=== PATIENT | male | born 1995 | race Caucasian/White ===

== ENCOUNTER 2018-07-05 05:10 | Inpatient (IN) | payer BC ==
[~2018-07-05] VITALS: Ht 170.2 cm; Wt 100.0 kg
[2018-07-05] MEDS ORDERED: SOD CHLORIDE 0.9% 1,000 ML IV STA ×2 (05:49→06:02)
[2018-07-05] MEDS ORDERED: ROCURONIUM 50 MG INJ IV ONE (06:00)
--- NOTE | 2018-07-05 06:09 | EN ---
Date/Time of Note Date/Time of Note DATE: 07/05/18 TIME: 06:07 ER Progress Note The patient was dropped off in front of the emergency department, was brought to bed 5 immediately by the triage nurse. He is highly intoxicated and unable to provide any history, O2 saturation is 80-85% on 100% NRM, accu check was 250. He is unable to protect his airway. He need to be intubated immediately. He was already sedated, paralyzed with rocuronium 80 mg IV and intubated immediately without any difficulty Endotracheal Intubation by me: Pre assessment performed. See preceding note for details. Pre-oxygenation performed with 100% oxygen RSI: Performed w/o complication or hypoxic events. Medications as ord ered. Blade: ET Tube: 7.5 cm Depth: 23 cm at the lip Intubation confirmed by colorimetric CO2, equal breath sounds, quiet over the stomach. I have ordered for NG tube, Alfaro, chest x-ray The patient care will be taken over by the incoming physician AJ Moran MD Jul 05, 2018 06:09
[2018-07-05] MEDS ORDERED: VANCOMYCIN 1 GM (PMX) 250 ML IVPB STA (06:16)
[2018-07-05] MEDS ORDERED: PIPER-TAZO 3.375 GM IV (PMX) 100 ML IVPB STA (06:16)
[2018-07-05] MEDS ORDERED: SODIUM CHLORIDE 0.9% 1L BAG IV* STA (06:16)
--- NOTE | 2018-07-05 06:25 | ERD ---
ER Documentation Chief Complaint Chief Complaint BIB FAMILY AND DROPPED OFF AT DOOR, ALOC, ETOH, RESPIRATIONS AGONAL HPI This is a 23-year-old male that was brought into the emergency department by friends and family after they noticed that the patient had changes in his mental status. Indicated the patient had been drinking a significant amount of alcohol but friend stated he did not use any illicit drugs. The friends appeared very anxious nervous and poor historians and indicated that they found the patient in the passenger seat of his vehicle and immediately drove him to the hospital. No further history is available. The patient had agonal respirations. It is unknown the patient's past medical history. ROS All systems reviewed and are negative except as per history of present illness. Allergies Allergies: Coded Allergies: Unknown: Unable to obtain (Unverified , 07/05/18) PMhx/Soc Medical and Surgical Hx: Unable to obtain Hx Alcohol Use: Yes Smoking Status: Unknown if ever smoked Physical Exam Vitals Vital Signs Date Temp Pulse Resp B/P (MAP) Pulse Ox O2 O2 Flow FiO2 Time Delivery Rate 07/05/18 98.4 103 20 125/98 100 Mechanical 07:30 (107) Ventilator 07/05/18 98.1 127 20 145/102 100 Mechanical 06:30 (116) Ventilator 07/05/18 98.1 124 20 165/94 100 Mechanical 06:11 (117) Ventilator 07/05/18 112 20 100 100 05:50 07/05/18 98.1 110 8 126/81 35 05:20 (96) Physical Exam Constitutional:Well-developed. Well-nourished. HEENT:Normocephalic. No nasal septal hematoma. No hemotympanum..Pupils were 3mm equal round reactive to light. Moist mucous membranes.No tonsillar exudates. Neck: No nuchal rigidity. No lymphadenopathy. No posterior cervical spine tenderness or step-offs. Respiratory: Agonal respirations. No wheezing. No rhonchi. Breath sounds equal and symmetrical bilaterally. Cardiovascular: Regular rate regular rhythm.No murmurs. No rubs were appreciated.S1, S2 normal. Distal pulses are palpable 2+ bilaterally. GI: Abdomen was soft. Nontender. Non Distended. No pulsatile abdominal masses or bruits. No rebound. No guarding. Bowel sounds were present and normal. Muscle skeletal: No active movements of the upper and lower extremities but passively patient has full range of motion of the upper and lower extremities.No assymetrical calf tenderness or swelling. Skin: No petechia, no purpura. No lesions on the palms or the soles of the feet. No maculopapular rash. NEURO: Patient was not opening eyes in response to pain. Patient withdrew to pain. Nonverbal. Gait not observed. Result Diagram: 07/05/1818 07/05/18 0518 Results 24 hrs Laboratory Tests Test 07/05/18 05:18 07/05/18 05:39 07/05/18 06:15 White Blood Count 27.1 10^3/ul Red Blood Count 5.36 10^6/ul Hemoglobin 16.7 g/dl Hematocrit 51.0 % Mean Corpuscular Volume 95.1 fl Mean Corpuscular 31.2 pg Hemoglobin Mean Corpuscular 32.7 g/dl Hemoglobin Concent Red Cell Distribution 13.0 % Width Platelet Count 406 10^3/UL Mean Platelet Volume 9.3 fl Immature Granulocytes % 2.500 % Neutrophils % % Segmented Neutrophils 84 % % (Manual) Band Neutrophils % 3 % (Manual) Lymphocytes % % Lymphocytes % (Manual) 10 % Monocytes % % Monocytes % (Manual) 2 % Eosinophils % % Basophils % % Myelocytes % (Manual) 1 % Nucleated Red Blood Cells 0.0 /100WBC % Immature Granulocytes # 0.690 10^3/ul Neutrophils # 10^3/ul Neutrophils # (Manual) 23.0 10^3/ul Band Neutrophils # 0.8 10^3/ul Lymphocytes (Manual) 2.7 10^3/ul Lymphocytes # 10^3/ul Monocytes # 10^3/ul Monocytes # (Manual) 0.5 10^3/ul Eosinophils # 10^3/ul Basophils # 10^3/ul Myelocytes # 0.2 10^3/ul Nucleated Red Blood Cells 10^3/ul # Platelet Estimate NORMAL Polychromasia 1+ Poikilocytosis 1+ Anisocytosis 1+ Microcytosis 1+ Prothrombin Time 12.8 Sec Prothrombin Time Ratio 1.0 INR International 0.95 Normalized Ratio Activated 24.7 Sec Partial Thromboplast Time Urine Color YELLOW Urine Clarity SLIGHTLY CLOUDY Urine pH 6.0 Urine Specific Crary 1.014 Urine Ketones NEGATIVE mg/dL Urine Nitrite NEGATIVE mg/dL Urine Bilirubin NEGATIVE mg/dL Urine Urobilinogen 2+ mg/dL Urine Leukocyte Esterase 2+ Cele/ul Urine Microscopic RBC 9 /HPF Urine Microscopic WBC 93 /HPF Urine Bacteria FEW /HPF Urine Hyaline Casts FEW /HPF Urine Mucus MANY /HPF Urine Hemoglobin 1+ mg/dL Urine Glucose 2+ mg/dL Urine Total Protein 1+ mg/dl Sodium Level 142 mmol/L Potassium Level 4.2 mmol/L Chloride Level 101 mmol/L Carbon Dioxide Level 26 mmol/L Anion Gap 15 Blood Urea Nitrogen 11 mg/dl Creatinine 1.64 mg/dl Est Glomerular Filtrat 52 mL/min Rate mL/min Glucose Level 298 mg/dl Calcium Level 9.3 mg/dl Total Bilirubin 0.4 mg/dl Direct Bilirubin 0.00 mg/dl Indirect Bilirubin 0.4 mg/dl Aspartate Amino 174 IU/L Transf (AST/SGOT) Alanine 132 IU/L Aminotransferase (ALT/SGPT ) Alkaline Phosphatase 111 IU/L Ammonia 48 umol/l Creatine Kinase 146 IU/L Creatine Kinase Index 0.4 Creatinine Kinase MB 0.64 ng/ml (Mass) Troponin I 0.073 ng/ml Total Protein 8.0 g/dl Albumin 4.6 g/dl Globulin 3.40 g/dl Albumin/Globulin Ratio 1.35 Free Thyroxine Index 2.89 ug/ml Thyroxine (T4) 8.1 ug/dl Triiodothyronine (T3) 35.7 % Uptake Salicylates Level < 1.0 mg/dl Urine Opiates Screen POSITIVE Acetaminophen Level < 10.0 ug/ml Urine Barbiturates NEGATIVE Urine Amphetamines Screen POSITIVE Urine Benzodiazepines NEGATIVE Screen Urine Cocaine Screen NEGATIVE Urine Cannabinoids POSITIVE Ethyl Alcohol Level < 10.0 mg/dl Bedside Urine pH (LAB) 6.5 Bedside Urine Protein 1+ (LAB) Bedside Urine Glucose (UA) 0.1% Bedside Urine Ketones Negative (LAB) Bedside Urine Blood Trace-intact Bedside Urine Nitrite Negative (LAB) Bedside Urine 1+ Leukocyte Esterase (L Blood Gas Specimen Source Blood arterial Arterial Blood Date Drawn 07/05/2018 6:15:12 AM Arterial Blood pH 7.267 (Temp corrected) Arterial Blood pCO2 55.5 mmhg (Temp correct) Arterial Blood pO2 80.1 mmHG (Temp corrected) Arterial Blood HCO3 24.7 mmol/L Arterial Blood Base Excess -3.3 mmol/L Arterial Blood 95.1 mmHG Oxygen Saturation Santhosh Test ACCEPTAB Arterial Blood Gas Right Radial Puncture Site Arterial 0.2 % Blood Carboxyhemoglobin Arterial Blood 0.4 % Methemoglobin Blood Gas A-a O2 577.4 mmHg Differential Oxyhemoglobin Percent 94.5 % Blood Gas Temperature 37.0 C Blood Gas Respiration Rate 20.0 Blood Gas Actual 20 Respiration Rate Blood Gas Modality VENT - AC FiO2 100.0 % Blood Gas Tidal Volume 500.0 mL Blood Gas Low PEEP Setting 5.0 cmH2O Blood Gas Critical Value PHAM. Xenia VILLELA Read Back Blood Gas Notified Whom Blood Gas Notified Time 07/05/2018 6:25:51 AM Current Medications Medications Dose Sig/Jp Start Time Status Last (Trade) Ordered Route PRN Stop Time Admin Dose Reason Admin Sodium 1,000 ml @ Q1H STAT 07/05/18 DC 07/05/18 Chloride 1,000 mls/hr IV 05:49 06:10 07/05/18 06:48 Rocuronium 80 mg ONCE ONCE 07/05/18 DC [place] IV 06:00 (Zemuron) 07/05/18 06:01 Sodium 1,000 ml @ Q1H STAT 07/05/18 DC 07/05/18 Chloride 1,000 mls/hr IV 06:02 07:37 07/05/18 07:01 Sodium 2,000 ml BOLUS OVER 2 07/05/18 DC 07/05/18 Chloride HOURS STAT 06:16 07:50 (NS) IV* 07/05/18 06:33 Vancomycin 250 ml @ ONCE STAT 07/05/18 DC HCl 125 mls/hr IVPB 06:16 07/05/18 08:15 Piperacillin 100 ml @ ONCE STAT 07/05/18 DC 07/05/18 Sod/ 200 mls/hr IVPB 06:16 07:50 Tazobactam 07/05/18 06:45 Sod Propofol 100 ml @ 3 ONCE STAT 07/05/18 07/05/18 mls/hr IV 06:51 07:38 07/06/18 16:10 1,000 ml @ Q2H ONCE 07/05/18 Multivitamins 500 mls/hr IV 08:30 10 07/05/18 10:29 ml/Thiamine HCl 100 mg/Folic Acid 1 mg/Magnesium Sulfate 2 gm/ Sodium Chloride Lorazepam 1 mg ONCE ONCE 07/05/18 (Ativan) IV 08:30 07/05/18 08:31 Procedures/MDM The patient presented to the emergency department with an acute and persistent change in their mental status. The differential diagnosis is diverse however reversible causes such as hypoglycemia, opiate overdose, thiamine deficiency were immediately considered. The patient was placed on a library monitor, continuous pulse oximetry and IV access was established. The patients airway was was not secured. The patient had agonal respirations. The patient had arrived prior to the start of my shift and the previous ER physician Dr. Harris intubated the patient to secure the patient's airway. He used rocuronium and placed on propofol for sedation. the patient did have a gag reflex. Circulation assessed with good cap refill and did not require fluids or pressure support. Finger stick for rapid glucose determined to be 298. 12 Lead EKG tracing ordered and reviewed by myself showed: Sinus tachycardia 126 bpm and no arrhythmia. GA interval normal. QRS duration normal. No ST segment elevation No ST segment depression. No changes consistent with acute ischemia. Once the ancillary laboratory came back the patient had severe leukocytosis with white blood cell count of 27,000. Therefore at this time the patient did meet Sirs criteria and lactic acid is pending. The patient did receive a 30 cc/kg bolus of normal saline was also given Comycin and Zosyn for suspected aspiration pneumonia. However the patient did have a urinary tract infection and therefore the antibiotics of choice will treat the urinary tract infection. The patient's urine drug screen was positive for opiates amphetamines and marijuana. Therefore this was thought to be toxic encephalopathy and serum ethanol was nondetected. The patient's ammonia level was elevated as well as transaminitis. The patient received a banana bag and was also given Ativan as a could not rule out severe alcohol withdrawal. A 1 view chest radiograph on reviewed by myself and the radiologist indicate the following: Endotracheal tube in appropriate position. Bibasilar atelectatic changes and small bilateral pleural effusions. Elevation of the right diaphragm. I obtained a CT scan of the patient's head which was reviewed by the radiologist myself and indicated the following: Left greater than right anterior inferior frontal lobe hypodensity, the distribution and appearance of which would favor presence of encephalomalacia from prior insult/injury. Allowing for this there is no acute or recent territorial infarct, which may initially be inapparent on CT. Short-term followup CT, or MRI, could be considered if there is persisting symptomatology or concern including for the possibility of acute infarct or anoxic injury. No intracranial hemorrhage, mass effect or hydrocephalus is seen. Borderline generalized atrophy, for age. The patient will be admitted to the intensive care unit in serious condition under the care of Dr. Mayen for an anticipated stay of greater than 2 midnights. Critical Care: Time: 75 minutes Treatments/Evaluations: Close monitoring and treatment of unstable vital signs, cardiorespiratory, and neurologic status, while maintaining tight balance of fluid, respiratory, and cardiac interventions. Time does not include performing any of the above billable procedures. I received a call at 8:22 AM that the patient's lactic acid was elevated at 4.4. The patient had already received 30 cc/kg bolus of normal saline and IV antibiotics for suspected sepsis. Patient's infectious symptoms have not stabilized and the patient is at risk of rapid decompensation. The patient will be admitted for careful hydration, antibiotic therapy, and infectious source control. Severe Sepsis Assessment: Infectious Source: pyleonephritis End organ damage indicated by: [Lactate > 2.0 mmol/L Hypotension( SBP < 90 or >40 mmHG drop or MAP < 65) Acute Resp Failure (sat < 92% w/o oxygen) Personnel Adviser > 2.0 INR > 1.5 Plt < 100 Bili > 2] Severe Sepsis Managment: Blood Cultures X 2 before broad spectrum antibiotics initiated within 3 hours of recognition. 30 ml/kg NS bolus Completed Initial Lactate: 4.4 Repeat Lactate pending Septic Shock Assessment (1 hour post 30 ml/kg fluid bolus): Hypotension (SBP < 90 or 40 mmHg drop, MAP < 65): No Lactic acid > 4.0 Yes Perfusion Reassessment for Septic Shock: Temp 98.4, Pulse 103, RR 20, BP 125/98 Heart Exam: Tachycardic Lung Exam: No Crackles Capillary Refill: Normal Peripheral Pulses: Radially present Skin: Normal I considered further perfusion assessment with CVP measurement, SCVO2, bedside ultrasound volume assessment, passive leg raise, trial of further fluid bolus. And preceded with IV fluids Departure Diagnosis: Primary Impression: Altered level of consciousness Additional Impressions: Toxic encephalopathy Hyperglycemia without ketosis Urinary tract infection Urinary tract infection type: acute cystitis Hematuria presence: without hematuria Qualified Codes: N30.00 - Acute cystitis without hematuria Severe sepsis Condition: Serious Patient Instructions: When Your Child Has a Urinary Tract Infection (UTI) TAMMI URBINA MD Jul 05, 2018 06:25
[2018-07-05] MEDS ORDERED: PROPOFOL 100 ML IV STA (06:51)
[2018-07-05] MEDS ORDERED: ROCURONIUM 50 MG INJ ONE (07:00)
[2018-07-05] MEDS ORDERED: MULTIVITAMINS 10 ML, THIAMINE 100 MG, FOLIC ACID 1 MG, MAGNESIUM SULFATE 2 GM in SOD CH... IV ONE (08:30)
[2018-07-05] MEDS ORDERED: LORAZEPAM 2 MG INJ IV ONE (08:30)
[2018-07-05] MEDS ORDERED: PROPOFOL 100 ML IV ONE (11:30)
--- NOTE | 2018-07-05 14:47 | CONS ---
DATE OF ADMISSION: 07/05/2018 DATE OF CONSULTATION: REASON FOR CONSULTATION: Ventilator management. Thank you, Dr. Urbina, for this consultation. HISTORY OF PRESENT ILLNESS: This is a 23-year-old gentleman who presented to the hospital with alter ed mental status with a history of significant alcohol and apparent substance abuse. On admission, t he patient was unable to protect airway, was emergently intubated. This morning I examined him and w e decreased sedation, placed him on a weaning trial. The patient self-extubated. Following self-ext ubation, he remains hemodynamically stable. Urine tox was positive for amphetamines, cannabis and op iates. PAST MEDICAL HISTORY: Substance abuse. MEDICATIONS: Per chart. ALLERGIES: UNKNOWN. SYSTEMS REVIEW: A 12-point review of systems was negative other than that mentioned above. PHYSICAL EXAMINATION: GENERAL: Well-nourished, well-developed gentleman, appears comfortable at rest, no acute distress. VITAL SIGNS: Currently afebrile. Temperature 98, pulse is 120, blood pressure 125/76, O2 saturation 99% on 4 L nasal cannula. NECK: Supple. No JVD or lymphadenopathy. CARDIAC: S1, S2, no added sounds or murmurs. CHEST: Diminished air entry at both bases. ABDOMEN: Soft, nontender. No guarding or rebound. EXTREMITIES: No cyanosis, clubbing or edema. NEUROLOGIC: Grossly intact. No focal deficits. LABORATORIES: White count 27.1, hemoglobin 16.7, platelets within normal limits. Chemistry: BUN 11 , creatinine 1.64. Creatinine kinase within normal limits. Lactic acid initially 4.4, then 4.3. IMAGING: Chest x-ray shows small bilateral pleural effusions with atelectasis. CT brain shows evide nce of prior injury with encephalomalacia. IMPRESSION AND PLAN: Polysubstance abuse with altered mental status, possible aspiration pneumonia, s ubsequent intubation, mechanical ventilation. Now, the patient is self-extubated. The patient will require: 1. Continue antibiotics. 2. Bronchodilators. 3. Supplemental O2 as needed. 4. Advice on substance abuse. 5. DVT and GI prophylaxis. Dictated By: WALESKA MATHEW MD SV/DAMIAN Conf#: [id number] DID#: [id number] CC: TAMMI URBINA MD;*EndCC*
[2018-07-05] MEDS ORDERED: ALBUTEROL 0.083% (NEB) 2.5 MG/3 ML AMP HHN PRN (15:30)
[2018-07-05] MEDS: PIPER-TAZO 3.375 GM IV (PMX) 100 ML IVPB SCH ×2 (15:31→22:05)
[2018-07-05 16:35] VITALS: BP 123/62; PULSE 109; RESP 19
[2018-07-05] MEDS: SOD CHLORIDE 0.9% 1,000 ML IV SCH (18:11)
--- NOTE | 2018-07-05 18:12 | HP ---
DATE OF ADMISSION: 07/05/2018 TIME OF EVALUATION: About 9:00 a.m. PRESENTING COMPLAINT: Altered mental status. HISTORY OF PRESENTING COMPLAINT: This is a 23-year-old male who was brought in obtunded due to change in mental status. Apparently per report, the patient had been drinking and urine toxicology screen was positive for multiple drugs. The patient was agonal when he came in and altered and had required endotracheal intubation in the emergency room to secure his airway. Urine drug screen was positive for opiates, amphetamines and marijuana and at this time, the patient is intubated and sedated and is being admitted for further management. PAST MEDICAL HISTORY: None. PAST SURGICAL HISTORY: None. ALLERGIES: NO KNOWN DRUG ALLERGIES. SOCIAL HISTORY: Cannot be obtained. REVIEW OF SYSTEMS: Cannot be obtained. PHYSICAL EXAMINATION: VITAL SIGNS: Temperature 98.4, pulse 104, respirations 20, blood pressure 118/86, saturations 100%. The patient is on mechanical ventilator, FiO2 of 90%. GENERAL: The patient is comfortably sedated. HEENT: Pupils are sluggishly reactive, but equal. No evidence of trauma. Orotracheally intubated. CHEST: With some coarseness to his breath sounds, but fairly good air entry. CARDIOVASCULAR: Tachycardia without murmurs. ABDOMEN: Soft, nontender. EXTREMITIES: Lower extremities are negative for edema. LABORATORY VALUES: The following were notable: Leukocytosis of 27,000 with bandemia of 30%, neutrophils predominance of 84%. Hyperglycemia with glucose of 289. Transaminitis with AST 174, ALT 133. Ammonia elevated at 48. Creatinine 1.64. Urine toxicology screen is positive for opiates, amphetamines as well as cannabinoids. Urinalysis with 2+ bacteria and 2+ leukocyte esterase. IMAGING: CT of the brain showed encephalomalacia from prior injury, no acute infarct noted, no bleeding. Chest x-ray showed endotracheal tube in appropriate position, bibasilar atelectasis and small pleural effusions. ASSESSMENT: A 23-year-old male who was brought in altered with the followin. Acute toxic encephalopathy secondary to #2. 2. Likely accidental overdose. 3. Acute respiratory failure, ventilator dependent secondary to above. 4. Sepsis with highly probable aspiration pneumonia in the lungs as well as urinary tract infection. 5. Acute renal failure, rule out chronic kidney disease. 6. Multi-substance abuse including amphetamines and marijuana. 7. Transaminitis, likely due to shock liver. 8. Hyperammonemia. Rule out hepatic encephalopathy. PLAN: Admit the patient to the intensive care unit. Continue vent support and wean. Start the patient on empiric antibiotics for UTI and possible aspiration pneumonia. Trend lactic acid levels and provide him with supportive care. Further intervention will depend on his clinical course. We will send blood, urine and sputum cultures. Pulmonary consultation will also be obtained for further management. Dictated By: YESICA ALVAREZ MD BA/NTS Conf#: [id number] DID#: [id number] CC: WALESKA MATHEW MD;*EndCC* MTDD
[2018-07-05 18:21] VITALS: PULSE 129
[2018-07-05] MEDS: ALBUTEROL 0.083% (NEB) 2.5 MG/3 ML AMP HHN SCH (19:21)
[2018-07-05 20:00] VITALS: BP 96/51; PULSE 114; RESP 20
[2018-07-05 20:16] VITALS: PULSE 128
[2018-07-05] MEDS ORDERED: FAMOTIDINE 20 MG INJ IV SCH (21:00)
[2018-07-06] VITALS (13 sets, daily range): BP systolic 99–131; BP diastolic 54–78; PULSE 94–112; RESP 18–20; Ht 170.2 cm; Wt 100.0 kg
[2018-07-06] MEDS: ALBUTEROL 0.083% (NEB) 2.5 MG/3 ML AMP HHN SCH ×4 (01:22→19:50)
[2018-07-06] MEDS: SOD CHLORIDE 0.9% 1,000 ML IV SCH ×2 (04:42→13:35)
[2018-07-06] MEDS: PIPER-TAZO 3.375 GM IV (PMX) 100 ML IVPB SCH ×3 (06:09→22:52)
[2018-07-06] MEDS: FAMOTIDINE 20 MG TAB PO SCH ×2 (08:20→21:03)
--- NOTE | 2018-07-06 09:39 | CONS ---
Assessment/Plan Assessment/Plan Assessment/Plan (Daily) Assessment and recommendations; 1. Patient admitted for acute drug overdose requiring brief intubation with significant improvement in overall clinical status. 2. Possibly some element of aspiration pneumonia, currently on appropriate antimicrobial regimen. Leukocytosis is improving. 3. Acute renal injury with normalization of renal function. Continue current supportive care. Further recommendations once chest x-ray is reviewed from this morning. I did have a detailed discussion with the patient's aunt at bedside and also discussed with the patient's mother over the phone. Consultation Date/Type/Reason Admit Date/Time Jul 05, 2018 at 14:10 Date of Consultation: Jul 06, 2018 Type of Consult Pulmonary Patient is a 23-year-old male who was brought into the hospital yesterday with altered mental status, patient was intubated but was extubated later on and then transferred to medical floor. By the time I saw him, patient is completely awake and alert but appearing very mildly sluggish to respond. He complains of mild sore throat and chest congestion and mild cough. Denies any chest pain, fever chills any abdominal pain nausea vomiting. Past medical history 1. Unremarkable. Possibly drug abuse. Medications; reviewed. Allergies; none. Social history; positive for drug abuse. Family history; noncontributory. Patient does have a supportive family. Occupational history; noncontributory. Review of systems; denies any headache, seizures, complains of sore throat. Complains of mild cough and chest congestion. Denies any chest pain, wheezing. Any nausea vomiting. Any abdominal pain, diarrhea, constipation. Any orthopnea. He denies any shortness of breath. General exam; young male, awake alert, currently no distress. Date/Time of Note DATE: 07/06/18 TIME: 09:35 Past Medical History Home Meds Unable to Obtain Active Prescriptions or Reported Meds Medications Current Medications Propofol 100 ml @ 3 mls/hr ONCE STAT IV Last administered on 07/05/18at 07:38; Admin Dose 3 MLS/HR; Start 07/05/18 at 06:51; Stop 07/06/18 at 16:10 Piperacillin Sod/ Tazobactam Sod 100 ml @ 200 mls/hr Q8 IVPB Last administered on 07/06/18at 06:09; Admin Dose 200 MLS/HR; Start 07/05/18 at 14:30 Albuterol (Proventil 0.083% (Neb)) 2.5 mg Q4H RESP THERAPY PRN HHN SHORTNESS OF BREATH Last administered on 07/05/18at 15:48; Admin Dose 2.5 MG; Start 07/05/18 at 15:30 Albuterol (Proventil 0.083% (Neb)) 2.5 mg Q6H RESP THERAPY HHN Last administered on 07/06/18 01:22; Admin Dose 2.5 MG; Start 07/05/18 at 20:00 Sodium Chloride 1,000 ml @ 100 mls/hr Q10H IV Last administered on 07/06/18 04:42; Admin Dose 100 MLS/HR; Start 07/05/18 at 18:00 Famotidine (Pepcid) 20 mg BID PO Last administered on 07/06/18 08:20; Admin Dose 20 MG; Start 07/06/18 at 09:00 Allergies: Coded Allergies: No Known Allergy (Unverified , 07/05/18) Social History Smoking Status: Never smoker Exam/Review of Systems Exam Vitals Vital Signs Date Temp Pulse Resp B/P (MAP) Pulse Ox O2 O2 Flow FiO2 Time Delivery Rate 07/06/18 97.3 101 113/64 92 08:05 (80) 07/06/18 Nasal 04:00 Cannula 07/06/18 4.0 02:00 07/06/18 21 01:23 Intake and Output 07/05/18 07/05/18 07/06/18 1515:00 23:00 07:00 IntakeIntake Total 3200 ml 200 ml 400 ml OutputOutput Total 1700 ml 2225 ml BalanceBalance 1500 ml 200 ml -1825 ml Exam HEENT exam; supple neck, no JVD. No lymphadenopathy. Midline trachea. No thyromegaly. Patient has good dentition. No neck masses. Pupils are small bilaterally. Chest exam; diminished but clear breath sounds. S1-S2 audible, no murmurs. Regular rhythm. Abdomen exam; soft, nontender. No organomegaly. Bowel sounds audible. Extremity exam; no peripheral edema. PIPELINE DISPATCHER exam; no focal deficit. Results Result Diagram: 07/06/18 0610 07/06/18 0610 Results 24hrs Laboratory Tests Test 07/05/18 09:52 07/05/18 15:33 07/06/18 06:10 Lactic Acid Level 4.3 *H 2.2 *H 1.7 White Blood Count 16.1 #H Red Blood Count 4.74 Hemoglobin 14.7 Hematocrit 44.0 Mean Corpuscular Volume 92.8 Mean Corpuscular Hemoglobin 31.0 Mean Corpuscular Hemoglobin Concent 33.4 Red Cell Distribution Width 13.2 Platelet Count 312 # Mean Platelet Volume 9.6 Immature Granulocytes % 0.400 Neutrophils % 84.9 H Lymphocytes % 8.3 L Monocytes % 5.5 Eosinophils % 0.6 Basophils % 0.3 Nucleated Red Blood Cells % 0.0 Immature Granulocytes # 0.070 H Neutrophils # 13.7 H Lymphocytes # 1.3 Monocytes # 0.9 Eosinophils # 0.1 Basophils # 0.1 Nucleated Red Blood Cells # 0.0 Sodium Level 141 Potassium Level 4.0 Chloride Level 107 Carbon Dioxide Level 26 Anion Gap 8 Blood Urea Nitrogen 8 Creatinine 0.96 Est Glomerular Filtrat Rate mL/min > 60 Glucose Level 95 # Hemoglobin A1c 5.0 Calcium Level 8.5 Phosphorus Level 3.2 Magnesium Level 2.1 Total Bilirubin 0.6 Direct Bilirubin 0.00 Indirect Bilirubin 0.6 Aspartate Amino Transf (AST/SGOT) 34 # Alanine Aminotransferase (ALT/SGPT) 68 Alkaline Phosphatase 78 Total Protein 5.8 #L Albumin 3.2 #L Hepatitis B Surface Antigen NEGATIVE Hepatitis B Surface Antibody NEGATIVE Hepatitis B Core Total Antibody NEGATIVE Hepatitis C Antibody NEGATIVE Medications Medication Current Medications Propofol 100 ml @ 3 mls/hr ONCE STAT IV Last administered on 07/05/18at 07:38; Admin Dose 3 MLS/HR; Start 07/05/18 at 06:51; Stop 07/06/18 at 16:10 Piperacillin Sod/ Tazobactam Sod 100 ml @ 200 mls/hr Q8 IVPB Last administered on 07/06/18at 06:09; Admin Dose 200 MLS/HR; Start 07/05/18 at 14:30 Albuterol (Proventil 0.083% (Neb)) 2.5 mg Q4H RESP THERAPY PRN HHN SHORTNESS OF BREATH Last administered on 07/05/18at 15:48; Admin Dose 2.5 MG; Start 07/05/18 at 15:30 Albuterol (Proventil 0.083% (Neb)) 2.5 mg Q6H RESP THERAPY HHN Last administered on 07/06/18at 01:22; Admin Dose 2.5 MG; Start 07/05/18 at 20:00 Sodium Chloride 1,000 ml @ 100 mls/hr Q10H IV Last administered on 07/06/18at 04:42; Admin Dose 100 MLS/HR; Start 07/05/18 at 18:00 Famotidine (Pepcid) 20 mg BID PO Last administered on 07/06/18at 08:20; Admin Dose 20 MG; Start 07/06/18 at 09:00 SILVIA MILLER Jul 06, 2018 09:39
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
[2018-07-06] MEDS: THIAMINE 100 MG TAB PO SCH (15:25)
[2018-07-06] MEDS: KETOROLAC 30 MG INJ IV PRN (22:53)
[2018-07-07] MEDS: SOD CHLORIDE 0.9% 1,000 ML IV SCH (01:12)
[2018-07-07 01:53] VITALS: BP 127/74; PULSE 98; RESP 20
[2018-07-07] MEDS: ALBUTEROL 0.083% (NEB) 2.5 MG/3 ML AMP HHN SCH ×3 (02:09→14:51)
[2018-07-07] MEDS: PIPER-TAZO 3.375 GM IV (PMX) 100 ML IVPB SCH ×2 (06:14→13:13)
[2018-07-07 07:55] VITALS: BP 111/71; PULSE 88; RESP 18
[2018-07-07] MEDS: FAMOTIDINE 20 MG TAB PO SCH (08:39)
[2018-07-07] MEDS: THIAMINE 100 MG TAB PO SCH (08:40)
[2018-07-07] MEDS: GUAIFENESIN/DM 5ML CUP PO PRN ×2 (08:49→16:50)
[2018-07-07] MEDS: KETOROLAC 30 MG INJ IV PRN ×2 (08:49→16:51)
[2018-07-07] MEDS ORDERED: ENOXAPARIN 40 MG/0.4 ML SYG SC SCH (09:00)
--- NOTE | 2018-07-07 11:06 | PDOCDIS ---
Discharge Instructions CONDITION [id number] Patient Condition: [id number] Stable HOME CARE INSTRUCTIONS: [id number] Diet Instructions: [id number] Regular ACTIVITY: [id number] Activity Restrictions: [id number] Slowly Increase Activity Do not Drive FOLLOW UP/APPOINTMENTS Follow-up Plan appt primary 1BRANDI Lao MD Jul 07, 2018 11:06
[2018-07-07] MEDS ORDERED: ALBU90AE INHALATION (11:09)
[2018-07-07] MEDS ORDERED: AZIT500T5 PO (11:09)
[2018-07-07] MEDS ORDERED: IBUP-1542 PO (11:09)
[2018-07-07] MEDS ORDERED: GUAI120S26 PO (11:09)
[2018-07-07] MEDS ORDERED: FAMO20TA18 PO (11:09)
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
[2018-07-07 13:58] VITALS: BP 107/64; PULSE 85; RESP 16
== END 2018-07-07 17:54 | disposition home or self-care (01) | DRG 871 ==
LOC: EDBD 05:10 → E/R 05:10 → TEL 14:10 → MERGE 14:10 → EDBEDREQSVC 14:11 → TEL 16:35 → 5EC 07-06 21:53
PROVIDERS: ADMIT Family Medicine; ATTEND Internal Medicine
PROC: 0BH17EZ Insertion of Endotracheal Airway into Trachea, Via Natural or Artificial Opening (ICD-10-PCS; principal; 2018-07-05)
PROC: 5A1935Z Respiratory Ventilation, Less than 24 Consecutive Hours (ICD-10-PCS; 2018-07-05)
PROC: 4A033R1 Measurement of Arterial Saturation, Peripheral, Percutaneous Approach (ICD-10-PCS; 2018-07-05)
DX: A41.9 Sepsis, unspecified organism (principal); G92 Toxic encephalopathy; J96.01 Acute respiratory failure with hypoxia; J69.0 Pneumonitis due to inhalation of food and vomit; N17.9 Acute kidney failure, unspecified; E72.20 Disorder of urea cycle metabolism, unspecified; N39.0 Urinary tract infection, site not specified; F11.20 Opioid dependence, uncomplicated; R65.20 Severe sepsis without septic shock; F15.10 Other stimulant abuse, uncomplicated; F12.10 Cannabis abuse, uncomplicated; R74.0 Nonspecific elevation of levels of transaminase and lactic acid dehydrogenase [LDH]; T43.621A Poisoning by amphetamines, accidental (unintentional), initial encounter; T40.2X1A Poisoning by other opioids, accidental (unintentional), initial encounter; T40.601A Poisoning by unspecified narcotics, accidental (unintentional), initial encounter; F32.9 Major depressive disorder, single episode, unspecified; F10.20 Alcohol dependence, uncomplicated; K29.70 Gastritis, unspecified, without bleeding; Z87.820 Personal history of traumatic brain injury
CPT/HCPCS: 31500; 36415; 36600; 70450; 71045; 80048; 80053; 80076; 80307; 81001; 81003; 82140; 82550; 82553; 82803; 83036; 83605; 83735; 84100; 84436; 84443; 84479; 84484; 85025; 85610; 85730; 86704; 86706; 86803; 87040; 87070; 87086; 87340; 87400; 93005; 94002; 94640; 94664; 96361; 96365; 96375; J1650; J1885; J2060; J2543; J3370; J3411; J3475; J7030